=== PATIENT | female | born 1985 | race African-American/Black ===

== ENCOUNTER 2019-02-11 19:37 | Emergency (ER) | payer OTHER ==
[~2019-02-11] VITALS: Ht 167.6 cm; Wt 77.1 kg
[~2019-02-11 19:37] MED LIST: BACTRIM DS TAB1 EACH PO; IBUPROFEN 800800 MG PO
[2019-02-11 20:18] LABS: URINE BILIRUBIN NEGATIVE (Negative); URINE BLOOD NEGATIVE (Negative); URINE CLARITY CLEAR; URINE COLOR YELLOW; URINE GLUCOSE-RANDOM* NEGATIVE (Negative); URINE KETONES 3+ (Negative); URINE LEUKOCYTES-REFLEX NEGATIVE (Negative); URINE NITRITE-REFLEX NEGATIVE (Negative); URINE PROTEIN (DIPSTICK) TRACE (Negative); URINE SPECIFIC GRAVITY 1.025 (1.005-1.035)
[2019-02-11 20:21] LABS: URINE REDUCING SUBSTANCE NEGATIVE
[2019-02-11 20:34] LABS: ABSOLUTE NEUTROPHILS 3.3 thou/uL (1.4-8.2); BASOPHILS 0.4 % (0.0-2.0); EOSINOPHILS 1.7 % (0.0-3.0); HEMATOCRIT 38.3 % (37.0-47.0); HEMOGLOBIN 13.5 gm/dL (12.0-15.0); LYMPHOCYTES 29.5 % (24.0-44.0); MCH 32.7 pg (26.0-34.0); MCHC 35.2 g/dL (28.0-37.0); MCV 92.9 fL (80.0-100.0); MONOCYTES 6.3 % (1.0-8.0); PLATELET COUNT 179 thou/uL (150-400); POLYS 62.1 % (36.0-66.0); RBC 4.12 mil/uL (4.20-5.00); RDW 13.2 % (10.5-14.5); WBC 5.3 thou/uL (4.0-11.0)
[2019-02-11 20:58] LABS: CALCIUM 9.4 mg/dL (8.5-10.1); CREATININE 0.4 mg/dL (0.6-1.0)
[2019-02-11 21:01] LABS: POTASSIUM 2.9 mmol/L (3.5-5.1)
[2019-02-11 21:15] LABS: MAGNESIUM 1.7 mg/dL (1.8-2.4)
[2019-02-11 23:16] VITALS: BP 144/98
== END 2019-02-11 23:16 | disposition home or self-care (01) ==
LOC: ER 19:37
PROVIDERS: Student in an Organized Health Care Education/Training Program
DX: E87.6 Hypokalemia (principal); K21.9 Gastro-esophageal reflux disease without esophagitis